=== PATIENT | male | born 1940 | race African-American/Black ===

== ENCOUNTER 2022-04-07 01:06 | Emergency (ER) | payer OTHER ==
[~2022-04-07] VITALS: Ht 175.3 cm; Wt 91.0 kg
[2022-04-07 04:25] LABS: HEMATOCRIT. 43.7 % (42.0-52.0); HEMOGLOBIN. 14.1 g/dL (14.0-18.0); MEAN CORPUSCULAR HEMOGLOBIN 26.9 pg (28.0-32.0); MEAN CORPUSCULAR VOLUME 83.3 fL (80.0-94.0); MEAN PLATELET VOLUME 8.8 fl (7.4-10.4); PLATELET 235 x1000/uL (130-400); RED BLOOD CELL COUNT 5.25 mill/uL (4.7-6.1); RED CELL DISTRIBUTION WIDTH 16.1 % (11.6-14.6)
[2022-04-07 04:32] LABS: CHLORIDE 105 mEq/L (98-107); PROTHROMBIN TIME 10.3 sec (9.6-11.0)
[2022-04-07] MEDS ORDERED: METF-874 MT (05:20)
[2022-04-07] MEDS ORDERED: HYDR100T26 PO (05:20)
[2022-04-07] MEDS ORDERED: LISI20TA31 PO (05:20)
[2022-04-07] MEDS ORDERED: AMLO1TAB98 PO (05:20)
[2022-04-07] MEDS ORDERED: ATEN100T PO (05:20)
[2022-04-07] MEDS ORDERED: ASPI-1073 PO (05:20)
[2022-04-07 06:01] LABS: PLATELET ESTIMATE NORMAL
[2022-04-07 11:40] VITALS: BP 152/70
== END 2022-04-07 11:55 | disposition short-term general hospital (02) ==
LOC: ER 01:20
DX: U07.1 COVID-19 (principal); E11.649 Type 2 diabetes mellitus with hypoglycemia without coma; N17.9 Acute kidney failure, unspecified; I10 Essential (primary) hypertension; Z79.82 Long term (current) use of aspirin
CPT/HCPCS: 36415; 80053; 82962; 85025; 85610; 87426; 99285; C9803